=== PATIENT | female | born 1985 | race Caucasian/White ===

== ENCOUNTER → 2024-02-12 | Emergency (ER) | payer OTHER ==
[~2024-02-12] VITALS: Ht 152.4 cm; Wt 72.1 kg
[2024-02-12 22:11] VITALS: BP 121/69; TEMP 97.5; O2SAT 100
== END ==
LOC: ER 19:54
DX: R07.89 Other chest pain (principal); J45.909 Unspecified asthma, uncomplicated
CPT/HCPCS: 71045-TC